=== PATIENT | male | born 1960 | race Caucasian/White ===

== ENCOUNTER 2020-11-04 16:41 | Emergency (ER) | payer OTHER, SELFPAY ==
[2020-11-04] VITALS (16 sets, daily range): BP systolic 126–159; BP diastolic 89–112; PULSE 59–94; RESP 12–20; TEMP 37.2; O2SAT 94–97
--- NOTE | ~2020-11-04 | XR_ITS ---
EXAMINATION: XR chest 2V DATE: 11/04/2020 17:24 INDICATION: Hypertension and intermittent palpitations TECHNIQUE: PA and lateral views of the chest were obtained. COMPARISON: None FINDINGS: The lungs are clear with no focal airspace opacities, pulmonary edema, pleural effusion or pneumothor ax. The cardiomediastinal silhouette is normal. Minimal thoracic spondylosis. IMPRESSION: 1. No acute cardiopulmonary disease. Reviewed, dictated and finalized at location A. ESTATE OPERATIONS MANAGER
--- NOTE | 2020-11-04 17:08 | ECG_ITS ---
Measurements Intervals [place] Rate: 83 P: 81 NM: 154 QRS: 66 QRSD: 91 T: 44 QT: 333 QTc: 392 Interpretive Statements SINUS RHYTHM VENTRICULAR PREMATURE COMPLEX PEAKED T WAVES- CONSIDER HYPERKALEMIA OR ISCHEMIA BASELINE ARTIFACT- I, II, III, AVL, V2 ABNORMAL ECG Electronically Signed On 11-05-2020 7:15:54 FINISH REMOVER by Mateo Chou D.O.
[2020-11-04 17:17] LABS: Basophils Absolute Auto 0.1 K/mm3 (0.0-0.1); Basophils Percent Auto 0.5 % (0.2-1.2); Eosinophils Absolute Auto 0.1 K/mm3 (0-0.3); Eosinophils Percent Auto 0.8 % (0-4.4); Hematocrit 52.9 % (42.0-52.0); Hemoglobin 17.8 g/dL (14.0-18.0); Immature Granulocyte Absolute 0.03 K/mm3 (0.00-0.031); Immature Granulocyte Percent A 0.3 % (0-0.5); Lymphocytes Absolute Auto 1.72 K/mm3 (0.9-3.2); Lymphocytes Percent Auto 18.1 % (18.3-44.2); Mean Corpuscular HGB Conc 33.6 g/dl (32-36); Mean Corpuscular Hemoglobin 27.6 pg (26-34); Mean Corpuscular Volume 81.9 fl (80-100); Mean Platelet Volume 10.2 fl (7.4-10.4); Monocytes Absolute Auto 0.7 K/mm3 (0.1-0.6); Monocytes Percent Auto 6.8 % (2.6-8.5); Neutrophils Percent Auto 73.5 % (45.5-73.1); Platelet Count Result 204 k/mm3 (150-375); Red Blood Count 6.46 M/mm3 (4.6-6.20); Red Cell Distribution Width 14.5 % (11.5-14.5); White Blood Count 9.5 K/mm3 (4.5-10.0)
[2020-11-04 17:27] LABS: Prothrombin Time 13.4 Seconds (11.1-14.7)
[2020-11-04 17:28] LABS: Partial Thromboplastin Time 27.7 SECONDS (22.3-36.8)
[2020-11-04 17:31] LABS: Anion Gap 10 mmol/L (8-16); Blood Urea Nitrogen 20 mg/dL (9-20); Calcium 9.7 mg/dL (8.4-10.2); Carbon Dioxide 24 mmol/L (22-30); Chloride 105 mmol/L (98-107); Estimated Glomerular Filt Rate 52; Glucose 89 mg/dL (75-110); Potassium 4.1 mmol/L (3.4-5.0); Sodium 139 mmol/L (137-145)
[2020-11-04 17:43] LABS: Troponin I < 0.012 ng/mL (0.000-0.034)
--- NOTE | 2020-11-04 17:50 | ED.ARRPALP ---
HPI - Arrhythmia/Palpitations General Chief Complaint: Arrhythmia/Palpitations Stated Complaint: palpitations Time Seen by Provider: 11/04/20 17:27 Source: patient Mode of arrival: ambulatory Limitations: no limitations History of Present Illness HPI narrative: A 60-year-old male presents to the emergency department with complaints of palpitations. Patient states that he is a kidney patient has been he feeling a fluttering in his heart. He does also note some slight tenderness associated with this. Patient complains mostly of the palpitations however. He notes that he was noticing them most of all last night and then again this morning. Patient states that he does not notice them throughout the day. Patient notes that he was started on lisinopril for his blood pressure and has been taking metoprolol as prescribed by his primary care doctor's nurse practitioner to help with blood pressure control. Patient states that it seems that metoprolol may be exacerbating this and he has questions about whether or not this is appropriate given that he is an asthmatic. Related Data Home Medications Medication Instructions Recorded Confirmed albuterol sulfate INHALATION 11/04/20 beclomethasone dipropionate [Qvar INHALATION 11/04/20 RediHaler] bepotastine besilate [Bepreve] drp 11/04/20 budesonide-formoterol [Symbicort] INHALATION 11/04/20 cetirizine mg 11/04/20 eletriptan mg 11/04/20 erenumab-aooe [Aimovig mg SUBCUT 11/04/20 Autoinjector] ergocalciferol (vitamin D2) 11/04/20 fluconazole 11/04/20 fluticasone propionate INTRANASAL 11/04/20 hydroxyzine HCl 11/04/20 lisinopril 25 mg PO DAILY 11/04/20 montelukast mg 11/04/20 olopatadine spray INTRANASAL 11/04/20 rosuvastatin mg 11/04/20 testosterone cypionate mg 11/04/20 tizanidine mg 11/04/20 topiramate 11/04/20 tramadol mg 11/04/20 Allergies Allergy/AdvReac Type Severity Reaction Status Date / Time fremanezumab-vfrm Allergy Hives Verified 11/04/20 17:14 [From Ajovy Syringe] niacin Allergy Itching Verified 11/04/20 17:14 Penicillins Allergy Anaphylaxis Verified 11/04/20 17:14 1. ASA 2. NSAID Allergy Unknown Anaphylaxis Uncoded 11/04/20 17:14 1. SHELLFISH 2. DAIRY Allergy Unknown Hives Uncoded 11/04/20 17:14 PRODUCTS Review of Systems Review of Systems: Narrative: CONSTITUTIONAL: Denies fever, chills, or sweats. EYES: Denies visual changes, redness, or discharge. ENT: Denies rhinorrhea, congestion, sore throat, or otalgia. CARDIOVASCULAR: Denies chest pain or edema. Endorses palpitations RESPIRATORY: Denies cough or dyspnea. GASTROINTESTINAL: Denies abdominal pain, nausea, vomiting, or diarrhea. GENITOURINARY: Denies dysuria or hematuria. SKIN: Denies rash or itching. MUSCULOSKELETAL: Denies back pain, joint pain, or myalgia. NEUROLOGIC: Denies headache, numbness, dizziness, or weakness. PSYCHIATRIC: Denies anxiety or depression. Exam Narrative: Exam Narrative: GENERAL: Well-appearing, well-nourished, and in no acute distress. HEAD: Normocephalic, atraumatic. EYES: PERRLA and EOMI. ENT: Nares clear, no rhinorrhea or epistaxis. Mucous membranes moist. Oropharynx without tonsillar hypertrophy exudate or other lesions. Bilateral TMs pearly irizarry nonbulging NECK: Supple. No adenopathy or masses. No carotid bruits or JVD CHEST: Clear to auscultation. No respiratory distress. No wheezes rales or rhonchi HEART: Regular rate and rhythm. No murmur heard. Normal peripheral pulses. ABDOMEN: Soft, nontender, nondistended, normal active bowel sounds. EXTREMITIES: Normal range of motion. No edema. SKIN: Warm, dry, no rash. NEURO: No focal deficits. Alert and oriented x3. PSYCH: Normal mood and affect. Course Reevaluation(s) Reevaluation #1: Reevaluated patient and explained the overall thought process and work-up. While he was here and while we were talking during several of my encounters with him I did notice PVCs intermittently on the monitor.
[2020-11-04 18:28] LABS: Magnesium 1.6 mg/dL (1.6-2.3)
== END 2020-11-04 19:55 | disposition home or self-care (01) ==
PROVIDERS: Emergency Medicine; Emergency Provider Emergency Medicine; PCP Internal Medicine
DX: R00.2 Palpitations (principal); I49.3 Ventricular premature depolarization; R94.31 Abnormal electrocardiogram [ECG] [EKG]
CPT/HCPCS: 36415; 71046; 80048; 83735; 84484; 85025; 85610; 85730; 93005; 99284

== ENCOUNTER 2021-04-27 09:36 | Emergency (ER) | payer OTHER, SELFPAY ==
--- NOTE | ~2021-04-27 | XR_ITS ---
EXAMINATION: XR hip RT min 2V DATE: 04/27/2021 10:40 INDICATION: Right buttock foreign body. TECHNIQUE: 2 views of right hip were obtained. COMPARISON: None. FINDINGS: Bone alignment is normal. No fracture. Right hip joint space is normal. IMPRESSION: 1. No radiopaque foreign body. Reviewed, dictated and finalized at location A.
[2021-04-27 09:39] VITALS: BP 132/95; PULSE 84; RESP 20; TEMP 36.6; O2SAT 99
--- NOTE | 2021-04-27 10:29 | ED.GENADULT ---
HPI - General Adult General Chief complaint: Skin/Abscess/Foreign Body Stated complaint: NEEDLE BROKE OFF IN SKIN Time Seen by Provider: 04/27/21 10:06 Source: patient Mode of arrival: ambulatory Limitations: no limitations History of Present Illness HPI narrative: Patient presents for evaluation of what he believes is a retained foreign body in the right hip. This is FTM who underwent gender reassignment surgery about 38 years ago. Patient is currently on testosterone cypionate injections with current dose of 200 mg every 2 weeks. 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 Pt states that he believes a needle broke off injecting mechanism and is currently retained under the skin. However this type of injectable mechanism retracts after administration of the medication. Denies any significant pain. Related Data Home Medications Medication Instructions Recorded Confirmed albuterol sulfate INHALATION 11/04/20 beclomethasone dipropionate [Qvar INHALATION 11/04/20 RediHaler] bepotastine besilate [Bepreve] drp 11/04/20 budesonide-formoterol [Symbicort] INHALATION 11/04/20 cetirizine mg 11/04/20 eletriptan mg 11/04/20 erenumab-aooe [Aimovig mg SUBCUT 11/04/20 Autoinjector] ergocalciferol (vitamin D2) 11/04/20 fluconazole 11/04/20 fluticasone propionate INTRANASAL 11/04/20 hydroxyzine HCl 11/04/20 lisinopril 25 mg PO DAILY 11/04/20 montelukast mg 11/04/20 olopatadine spray INTRANASAL 11/04/20 rosuvastatin mg 11/04/20 testosterone cypionate mg 11/04/20 tizanidine mg 11/04/20 topiramate 11/04/20 tramadol mg 11/04/20 Allergies Allergy/AdvReac Type Severity Reaction Status Date / Time fremanezumab-vfrm Allergy Hives Verified 04/27/21 09:43 [From Ajovy Syringe] niacin Allergy Itching Verified 04/27/21 09:43 Penicillins Allergy Anaphylaxis Verified 04/27/21 09:43 1. ASA 2. NSAID Allergy Unknown Anaphylaxis Uncoded 04/27/21 09:43 1. SHELLFISH 2. DAIRY Allergy Unknown Hives Uncoded 04/27/21 09:43 PRODUCTS Review of Systems Review of Systems: Narrative: CONSTITUTIONAL: Denies fever, chills, or sweats. EYES: Denies visual changes, redness, or discharge. ENT: Denies rhinorrhea, congestion, sore throat, or otalgia. CARDIOVASCULAR: Denies chest pain, palpitations, or edema. RESPIRATORY: Denies cough or dyspnea. GASTROINTESTINAL: Denies abdominal pain, nausea, vomiting, or diarrhea. GENITOURINARY: Denies dysuria or hematuria. SKIN: Reports of what he believes to be a retained foreign body in the right hip. Denies rash or itching. MUSCULOSKELETAL: Denies back pain, joint pain, or myalgia. NEUROLOGIC: Denies headache, numbness, dizziness, or weakness. PSYCHIATRIC: Denies anxiety or depression. [facility] Past Medical History Medical History (Updated 04/27/21 @ 12:32 by Jesse Cabezas, INTERVENTION MANAGER, ) Gender identity disorder of adulthood, status post gender reassignment surgery Migraines Obstructive sleep apnea Polycystic kidney Family History Family History Mother Breast cancer Colon cancer Social History Social History (Updated 04/27/21 @ 10:35 by Jesse Cabezas [facility], ) Alcohol intake: never Living arrangements: with family Gender identity (if verbalized by the patient): Male Spiritual care concerns: No Exam Narrative: Exam Narrative: GENERAL: Well-appearing, well-nourished, and in no acute distress. HEAD: Normocephalic, atraumatic. EYES: PERRLA and EOMI. ENT: Nares clear, no rhinorrhea or epistaxis. Mucous membranes moist. Oropharynx without tonsillar hypertrophy exudate or other lesions. Bilateral TMs pearly irizarry nonbulging NECK: Supple. No adenopathy or masses. No carotid bruits or JVD CHEST: Clear to auscultation. No respiratory distress. No wheezes rales or rhonchi HEART: Regular rate and rhythm. No murmur heard. Normal peripheral pulses. ABDOMEN: Soft, nontender, nondistended, normal active [place]
[2021-04-27] MEDS: TETANUS,DIPHTHERIA,AC PERTUSSIS ADULT (0.5 ML) BOOSTRIX IM (11:04)
[2021-04-27 12:54] VITALS: BP 127/90; PULSE 83; RESP 20; O2SAT 99
== END 2021-04-27 12:55 | disposition home or self-care (01) ==
PROVIDERS: Emergency Provider Nurse Practitioner; PCP Internal Medicine
DX: T80.89XA Other complications following infusion, transfusion and therapeutic injection, initial encounter (principal); Z23 Encounter for immunization; G47.33 Obstructive sleep apnea (adult) (pediatric); Q61.3 Polycystic kidney, unspecified; Z87.890 Personal history of sex reassignment
CPT/HCPCS: 10120; 73502; 90471; 90715; 99283